=== PATIENT | female | born 1980 | race Caucasian/White ===

== ENCOUNTER 2016-11-28 14:05 | Emergency (ER) | payer OTHER ==
[2016-11-28 14:45] VITALS: BP 150/59
--- NOTE | 2016-11-28 14:47 | UC ---
General HPI - History of Current Complaint Chief Complaint: UCBiteInjury Stated Complaint: RABIES EXPOSURE Hx Obtained From: Patient - live bat found hanging on window blind with blood on it yesterday. removed bat from house using a container, states it flew away. Patient sustained no bite Hx Last Menstrual Period: 11/27/2016 - Allergy/Home Medications Allergies/Adverse Reactions: Allergies Allergy/AdvReac Type Severity Reaction Status Date / Time Beta Adrenergic Blockers Allergy Unknown Unknown Verified 11/28/16 14:30 Reaction Details Home Medications: Home Medications Enalapril TAB* [Vasotec TAB*] 1 tab PO DAILY 11/28/16 [History Confirmed ] Gabapentin CAP(*) [Neurontin 100 mg CAP(*)] 1 tab PO TID 11/28/16 [History Confirmed 11/28/16] Insulin Aspart [Novolog] 5 unit SUBCUT TID PRN 11/28/16 [History Confirmed 11/28] Insulin Detemir (NF) [Levemir (NF)] 28 unit SUBCUT DAILY 11/28/16 [History Confirmed 11/28/16] Modafinil [Provigil] 1 tab PO DAILY PRN 11/28/16 [History Confirmed 11/28/16] Nabumetone TAB* [Relafen TAB*] 1.5 tab PO BID 11/28/16 [History Confirmed ] Promethazine HCl 1 tbsp PO DAILY PRN 11/28/16 [History Confirmed 11/28/16] Sertraline* [Zoloft*] 3 tab PO DAILY 11/28/16 [History Confirmed 11/28/16] traZODone TAB* [Desyrel TAB*] 1 tab PO DAILY 11/28/16 [History Confirmed ] PMH/Surg Hx/FS Hx/Imm Hx Previously Healthy: Yes Endocrine History: Diabetes Cardiovascular History: Hypertension Psychological History: Anxiety, Depression, Other - chronic fatigue Other Psychological History: anxiety - Surgical History Surgical History: None - Family History Known Family History: Positive: Hypertension - Social History Occupation: Unemployed Lives: With Family Alcohol Use: None Substance Use Type: None Smoking Status (MU): Former Smoker Type: eCigarettes - Immunization History Most Recent Tetanus Shot: UNSURE Vaccination Up to Date: No Review of Systems Constitutional: Negative Skin: Negative Respiratory: Negative Cardiovascular: Negative All Other Systems Reviewed And Are Negative: Yes Physical Exam Triage Information Reviewed: Yes Appearance: Well-Appearing, No Pain Distress, Obese Vital Signs: Initial Vital Signs Temp 97.4 F 11/28/16 14:38 Pulse 85 11/28/16 14:38 Resp 16 11/28/16 14:38 BP 150/59 11/28/16 14:38 Pulse Ox 99 11/28/16 14:38 Vital Signs Reviewed: Yes Respiratory Exam: Normal Cardiovascular Exam: Normal Psychological Exam: Normal Skin Exam: Normal - no bite/scratch min Course/Dx - Differential Dx - Multi-Symptom Differential Diagnoses: Other - bat exposure poss exposure rabies Provider Diagnoses: possible exposure to rabies Discharge - Discharge Plan Condition: Good Disposition: HOME Patient Education Materials: Rabies Vaccine (By injection), Rabies Immune Globulin (By injection), Diphtheria/Acellular Pertussis/Tetanus Vaccine (By injection) Referrals: Sona Cardoso MD [Primary Care Provider] - 2 Days (recheck B/P) Additional Instructions: follow-up with health department as directed
[2016-11-28] MEDS ORDERED: Tetan/Diph/Pertus SYR(Tdap)* 0.5 ML SYR(BOOSTRIX) use SYR IM ONE (14:57)
[2016-11-28] MEDS ORDERED: Rabies Vaccine, PCEC INJ* 1 ml IM ONE (15:17)
[2016-11-28] MEDS ORDERED: Rabies Immune Globulin 10 ML* 150 UNIT/ML VIAL IM ONE (15:17)
[2016-11-28] MEDS ORDERED: Rabies Immune Globulin 2 ML* 150 UNITS/ML VIAL IM ONE (15:17)
== END 2016-11-28 16:14 | disposition home or self-care (01) ==
LOC: UCEAST 14:05
DX: Z20.3 Contact with and (suspected) exposure to rabies (principal); E11.9 Type 2 diabetes mellitus without complications; I10 Essential (primary) hypertension; F41.9 Anxiety disorder, unspecified; F32.9 Major depressive disorder, single episode, unspecified; Z79.4 Long term (current) use of insulin
CPT/HCPCS: 90375; 90471; 90472; 90675; 90715; 96372; 99211; G0463

== ENCOUNTER 2017-01-16 16:18 | Emergency (ER) | payer OTHER ==
[2017-01-16 17:17] VITALS: BP 121/75
--- NOTE | 2017-01-16 18:45 | UC ---
Shoulder Pain HPI - History of Current Complaint Chief Complaint: UCUpperExtremity Stated Complaint: RIGHT UNDER ARM PAIN Time Seen by Provider: 01/16/17 18:13 Hx Obtained From: Patient Hx Last Menstrual Period: 12/26/16 ?: No - Implanon Onset/Duration: Gradual Onset - started 6-7 days ago with R shoulder pain, pain in R armpit, no known injury. has not gotten better despite ibuprofen, tylenol or heat. 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 this frequently - Risk Factors DVT Risk Factors: Negative - Allergies/Home Medications Allergies/Adverse Reactions: Allergies Allergy/AdvReac Type Severity Reaction Status Date / Time Beta Adrenergic Blockers Allergy Unknown Unknown Verified 11/28/16 14:30 Reaction Details Home Medications: Home Medications Pregabalin CAP(*) [Lyrica CAP(*)] 50 mg PO TID 01/16/17 [History Confirmed 01/16] buPROPion TAB* [Wellbutrin TAB*] 100 mg PO BID 01/16/17 [History Confirmed 01/16] PMH/Surg Hx/FS Hx/Imm Hx Previously Healthy: Yes Endocrine History: Diabetes Neurological History: Other - fibromyalgia Other Neurological History: fibromyalgia Psychological History: Depression - Surgical History Surgical History: None - Family History Known Family History: Positive: Hypertension - Social History Occupation: Unemployed Lives: With Family Alcohol Use: Rare Substance Use Type: None Smoking Status (MU): Former Smoker Type: eCigarettes - Immunization History Most Recent Tetanus Shot: UNSURE Vaccination Up to Date: No Review of Systems Constitutional: Negative Respiratory: Negative Cardiovascular: Negative Musculoskeletal: Other: - shoulder pain Neurological: Paresthesia - R fingers All Other Systems Reviewed And Are Negative: Yes Physical Exam Triage Information Reviewed: Yes Appearance: Well-Appearing, No Pain Distress, Well-Nourished Vital Signs: Initial Vital Signs Temp 98.7 F 01/16/17 17:07 Pulse 82 01/16/17 17:07 Resp 18 01/16/17 17:07 BP 121/75 01/16/17 17:07 Pulse Ox 98 01/16/17 17:07 Vital Signs Reviewed: Yes Neck exam: Normal Neck: Positive: Supple, Nontender, No Lymphadenopathy Respiratory Exam: Normal Respiratory: Positive: Lungs clear Cardiovascular Exam: Normal Cardiovascular: Positive: RRR, No Murmur, Pulses Normal, Brisk Capillary Refill Musculoskeletal: Positive: Strength Intact, ROM Intact, No Edema, Other: - no palpable pain. patient demonstrates full active ROM bilateral UE and normal strength Neurological Exam: Normal Psychological Exam: Normal Skin Exam: Normal Skin: Negative: rashes Shoulder Course/Dx - Differential Dx/Diagnosis Differential Diagnosis/HQI/PQRI: Bursitis, Contusion, Sprain, Strain, Tendonitis , Thoracic Outlet Syndrome, Other - LAD, abscess axilla Provider Diagnoses: R shoulder strain Discharge - Discharge Plan Condition: Stable Disposition: HOME Patient Education Materials: Shoulder Pain (ED) Referrals: Sona Cardoso MD [Primary Care Provider] - 2 Days (for recheck) Additional Instructions: use shoulder immobilizer and rest arm report to Er if your symptoms change or worsen at anytime apply warm pad to shoulder and upper back
== END 2017-01-16 19:00 | disposition home or self-care (01) ==
LOC: UCEAST 16:18
DX: S46.911A Strain of unspecified muscle, fascia and tendon at shoulder and upper arm level, right arm, initial encounter (principal); X58.XXXA Exposure to other specified factors, initial encounter; Y93.9 Activity, unspecified; Y92.9 Unspecified place or not applicable; R20.0 Anesthesia of skin; R20.2 Paresthesia of skin; E11.9 Type 2 diabetes mellitus without complications; M79.7 Fibromyalgia; F32.9 Major depressive disorder, single episode, unspecified; Z87.891 Personal history of nicotine dependence
CPT/HCPCS: 99213; G0463

== ENCOUNTER 2017-07-06 21:02 | Emergency (ER) | payer OTHER ==
[2017-07-06] MEDS ORDERED: NS 0.9% 1000 ML* 1,000 ML IV ONE (21:29)
[2017-07-06 21:54] LABS: ABS Basophils 0.1 10^3/ul (0-0.2); ABS Eosinophils 0.2 10^3/ul (0-0.6); ABS Lymphocytes 3.1 10^3/ul (1.0-4.8); ABS Monocytes 0.4 10^3/ul (0-0.8); ABS Neutrophils 4.5 10^3/ul (1.5-7.7); ABS Nucleated RBC 0 10^3/ul; Eosinophil % 1.9 % (0-6); Hematocrit 36 % (35-47); Hemoglobin 12.2 g/dl (12.0-16.0); Lymphocyte % 37.6 % (25-47); Mean Corpuscular HGB Conc 34 g/dl (31-36); Mean Corpuscular Hemoglobin 31 pg (27-31); Mean Corpuscular Volume 93 fL (80-97); Mean Platelet Volume 8 um3 (7.4-10.4); Nucleated Red Blood Cells % 0; Platelet Count 271 10^3/ul (150-450); Red Blood Count 3.93 10^6/ul (4.0-5.4); Red Cell Distribution Width 13 % (10.5-15); White Blood Count 8.2 10^3/ul (3.5-10.8)
[2017-07-06 22:10] LABS: EGFR Non-African American 125.1 (>60)
[2017-07-06] MEDS ORDERED: Insulin REGULAR(*) 1 UNITS UNIT IV PUSH ONE (22:16)
--- NOTE | 2017-07-06 23:09 | ED ---
Ari Cabrera Rebecca, scribed for Lynette Lombardo MD on 07/06/17 at 2129 . HPI Diabetic - HPI Summary HPI Summary: Pt is a 37 y/o F with a PMHx of Type 1 DM who presents to ED c/o elevated BG. Pt reports that at about 1800 tonight she had trace ketones in her urine on a home test, then she retested, showing moderate ketones. Her BG was 246 at home using her meter at home. Additionally c/o nausea and JOYA. Denies vomiting. Pt takes Novolog and Levemir to treat diabetes, using a sliding scale with her last dose being 5 with dinner at about 1730. Confirms she has been drinking water and urinating and states that her BG is usually between 150 and 200. Reports that at a diabetes appointment about 1 month ago her A1C and BUN were high, but she has been unable to followup due to insurance problems. Has a PCP appointment scheduled for 2 days from now (). - History Of Current Complaint Chief Complaint: EDDiabeticProb Time Seen by Provider: 07/06/17 21:16 Hx Obtained From: Patient Hx Last Menstrual Period: 12/26/16 Onset/Duration: Still Present Character: Alert Aggravating: Nothing Alleviating: Nothing Associated Signs & Symptoms: Nausea Related History: DM I - Allergies/Home Medications Allergies/Adverse Reactions: Allergies Allergy/AdvReac Type Severity Reaction Status Date / Time Beta-Blockers Allergy Unknown Verified 07/06/17 21:08 (Beta-Adrenergic Bloc Reaction Details PMH/Surg Hx/FS Hx/Imm Hx Endocrine/Hematology History: Reports: Hx Diabetes - type 1 Denies: Hx Thyroid Disease Cardiovascular History: Denies: Hx Hypertension, Hx Pacemaker/ICD Respiratory History: Denies: Hx Asthma, Hx Chronic Obstructive Pulmonary Disease (COPD) GI History: Denies: Hx Ulcer History: Denies: Hx Renal Disease Sensory History: Denies: Hx Hearing Aid Psychiatric History: Reports: Hx Panic Disorder - ANIXIETY MRI OK - Surgical History Surgery Procedure, Year, and Place: 3 C SECTIONS. 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 Negative: Vomiting Positive: Headache All Other Systems Reviewed And Are Negative: Yes Physical Exam - Summary Physical Exam Summary: VITAL SIGNS: Reviewed. GENERAL: ~Patient is a well-developed and nourished female who is lying comfortable in the stretcher. Patient is not in any acute respiratory distress. HEAD AND FACE: No signs of trauma. No ecchymosis, hematomas or skull depressions. No sinus tenderness. EYES: PERRLA, EOMI x 2, No injected conjunctiva, no nystagmus. EARS: Hearing grossly intact. Ear canals and tympanic membranes are within normal limits. MOUTH: Oropharynx within normal limits. NECK: Supple, trachea is midline, no adenopathy, no JVD, no carotid bruit, no c- spine tenderness, neck with full ROM. CHEST: Symmetric, no tenderness at palpation LUNGS: Clear to auscultation bilaterally. No wheezing or crackles. CVS: Regular rate and rhythm, S1 and S2 present, no murmurs or gallops appreciated. ABDOMEN: Soft, non-tender. No signs of distention. No rebound no guarding, and no masses palpated. Bowel sounds are normal. EXTREMITIES: FROM in all major joints, no edema, no cyanosis or clubbing. NEURO: Alert and oriented x 3. No acute neurological deficits. Speech is normal and follows commands. SKIN: Dry and warm Triage Information Reviewed: Yes Vital Signs On Initial Exam: Initial Vitals Temp Pulse Resp BP Pulse Ox 97.0 F 65 16 126/55 99 07/06/17 21:06 07/06/17 21:06 07/06/17 21:06 07/06/17 21:06 07/06/17 21:06 Vital Signs Reviewed: Yes Diagnostics - Vital Signs Vital Signs Temp Pulse Resp BP Pulse Ox 07/06/17 21:19 76 98 07/06/17 21:06 97.0 F 65 16 126/55 99 - Laboratory Result Diagrams: 07/06/17 21:43 07/06/17 21:43 Lab Statement: Any lab studies that have been ordered have been reviewed, and results considered in the medical decision making process. Re-Evaluation - Re-Evaluation First Eval Re-Evaluation Time: 23:00 Change: Improved Comment: Pt's BG has been slowly coming down. Discussed D/C plan. Diabetic Course/Dx - Course Assessment/Plan: Pt is a 37 y/o F with a PMHx of Type 1 DM who presents to ED c/ o elevated BG. Pt reports that at about 1800 tonight she had trace ketones in her urine on a home test, then she retested, showing moderate ketones. Her BG was 246 at home using her meter at home. Additionally c/o nausea and JOYA. Denies vomiting. Pt takes Novolog and Levemir to treat diabetes, using a sliding scale with her last dose being 5 with dinner at about 1730. Confirms she has been drinking water and urinating and states that her BG is usually between 150 and 200. Reports that at a diabetes appointment about 1 month ago her A1C and BUN were high, but she has been unable to followup. In the ED course, pt received fluids and insulin which impproved symptoms. Pt will be D/C to home with Dx of hyperglycemia with a followup with her PCP. She understands and agrees. Allergies noted. - Diagnoses Provider Diagnoses: Hyperglycemia Discharge - Discharge Plan Condition: Stable Disposition: HOME Patient Education Materials: Diabetic Hyperglycemia (ED) Referrals: Sona Cardoso MD [Primary Care Provider] - 3 Days Additional Instructions: Continue taking medications as you have been. RETURN TO EMERGENCY DEPARTMENT FOR ANY NEW OR WORSENING SYMPTOMS The documentation as recorded by the Ari reyes Rebecca accurately reflects the service I personally performed and the decisions made by me, Lynette Lombardo MD.
[2017-07-06 23:21] VITALS: BP 119/67
== END 2017-07-06 23:22 | disposition home or self-care (01) ==
LOC: ED 21:02
DX: E10.65 Type 1 diabetes mellitus with hyperglycemia (principal); Z79.4 Long term (current) use of insulin; R11.0 Nausea; R51 Headache; F41.0 Panic disorder [episodic paroxysmal anxiety]; Z87.891 Personal history of nicotine dependence
CPT/HCPCS: 36415; 80053; 82803; 85025; 96360; 99283

== ENCOUNTER 2017-11-28 11:29 | Emergency (ER) | payer OTHER ==
--- OUTSIDE RECORDS SUMMARY | 2017-11-28 11:36 | XMS REPORT ---
:1980 External Reference #:[id number] Author Organization [facility] Address [address] [place] [address] [place] [address] Phone [phone] Care Team Providers Name Role Phone Sona Cardoso MD Care Team Information Economist Research Assistant Unavailable Ashish Eubanks MD Primary Care Physician Unavailable Payers Type Date Identification Numbers Payment Provider Subscriber Commercial Policy Number: [id number] [employer] Paige Marsh PayID: [id number] [address] [place] [id number] Problems Date Description Provider Status Onset: 02/02/2017 Skin sensation disturbance Boris Arredondo M.D. Active Onset: 02/02/2017 Diabetes mellitus Boris Arredondo M.D. Active Onset: 02/02/2017 Chronic fatigue syndrome Boris Arredondo M.D. Active Onset: 02/02/2017 Neck pain Boris Arredondo M.D. Active Onset: 02/02/2017 Pain in thoracic spine Boris Arredondo M.D. Active Onset: 02/02/2017 Low back pain Boris Arredondo M.D. Active Onset: 09/03/2017 Fibromyalgia Boris Arredondo M.D. Active Onset: 10/15/2017 Concussion without loss of Boris Arredondo M.D. Active consciousness, subs encntr Onset: 10/15/2017 Inflammatory polyarthropathy Boris Arredondo M.D. Active Family History Date Family Member(s) Problem(s) Comments General Psoriasis Father Diabetes Mother Psoriasis Social History Type Date Description Comments ETOH Use Rarely consumes alcohol Smoking Patient is a former smoker quit 2015, smoked for 20 years 1 ppd at most Recreational Drug Use Denies Drug Use Smoking Patient is a current smoker, E Cig smokes every day Exercise Type/Frequency Exercises regularly Allergies, Adverse Reactions, Alerts Date Description Reaction Status Severity Comments 09/07/2017 Beta Adrenergic Blockers active bp too low 02/02/2017 NKDA inactive Medications Medication Date Status Form Strength Qnty SIG Indications Ordering Provider Naltrexone HCL 09/30/ Active Powder 15gm 4.5 mg 2017 compounded Antelmo Johnson in capsules by mouth every day Skelaxin 09/03/ Active Tablets 800mg 14tab Take one M79.7 Boris 2017 s pill twice Antelmo Arredondo a day as necessary Lyrica 09/03/ Active Capsules 200mg 60cap 1 pill by M79.7 Boris 2017 s mouth twice Antelmo Arredondo a day Enalapril / Active Tablets 10mg 1 by mouth Unknown Maleate 0000 once a day Adrafinil / Active Tablets 100mg 1 tab daily Unknown 0000 as needed Sertraline HCL / Active Tablets 100mg 1.5 by Unknown 0000 mouth every day Trazodone HCL / Active Tablets 100mg as Unknown 0000 directed- pt states she takes 50 MG every night Zofran / Active Tablets 4mg take 1 by Unknown 0000 mouth twice a day as needed for nausea Novolog Mix / Active Supn (70-30)10 5-25 units Unknown 70/30 0000 0Unit/ML as directed Prefilled Flexpen Basaglar / Active Solution 100Unit/M 28 units Unknown Kwikpen 0000 Pen-Injec L daily t Klonopin / Active Tablets 0.5mg half tab as Unknown 0000 needed.. Methotrexate / Active Tablets 2.5mg 4 tbs by Unknown 0000 mouth every week Lyrica 06/04/ Hx Capsules 150mg 60cap take 1 pill M79.7 Boris 2017 - s by mouth Antelmo Arredondo 09/03/ twice a day 2017 Lyrica 03/08/ Hx Capsules 100mg 60cap 1 by mouth R53.82 Morales Fabian 2016 - s twice a day Luz Elena 06/04/ Antelmo 2017 Buspirone HCL / Hx Tablets 10mg As directed Unknown 0000 - 2017 Lyrica / Hx Capsules 50mg 1 by mouth M54.5 Unknown 0000 - three times day 2016 Nabumetone / Hx Tablets 750mg As directed Unknown 0000 - 2016 Lantus / Hx Solution 100Unit/M 28 units Unknown 0000 - L subq 2017 Vital Signs Date Vital Result Comment 11/15/2017 Height 62 inches 5'2" Weight 165.00 lb Heart Rate 78 /min BP Systolic Sitting 118 mmHg BP Diastolic Sitting 65 mmHg Respiratory Rate 14 /min Pain Level 5 BMI (Body Mass Index) 30.2 kg/m2 10/15/2017 Height 62 inches 5'2" Weight 165.00 lb Heart Rate 84 /min BP Systolic Sitting 112 mmHg BP Diastolic Sitting 66 mmHg Respiratory Rate 16 /min BMI (Body Mass Index) 30.2 kg/m2 09/07/2017 Height 62 inches 5'2" Weight 167.00 lb Heart Rate 72 /min BP Systolic Sitting 128 mmHg BP Diastolic Sitting 80 mmHg Respiratory Rate 14 /min Pain Level 6 BMI (Body Mass Index) 30.5 kg/m2 09/03/2017 Height 62 inches 5'2" Weight 165.00 lb Heart Rate 80 /min BP Systolic Sitting 112 mmHg BP Diastolic Sitting 68 mmHg Respiratory Rate 16 /min BMI (Body Mass Index) 30.2 kg/m2 06/04/2017 Height 72 inches 6'0" Weight 170.00 lb Heart Rate 72 /min BP Systolic Sitting 128 mmHg BP Diastolic Sitting 78 mmHg Respiratory Rate 16 /min BMI (Body Mass Index) 23.1 kg/m2 03/08/2017 Height 62 inches 5'2" Weight 175.00 lb Heart Rate 84 /min BP Systolic 120 mmHg BP Diastolic 72 mmHg Respiratory Rate 12 /min BMI (Body Mass Index) 32.0 kg/m2 02/02/2017 Height 62 inches 5'2" Weight 171.00 lb Heart Rate 80 /min BP Systolic 112 mmHg BP Diastolic 78 mmHg Respiratory Rate 14 /min BMI (Body Mass Index) 31.3 kg/m2 Results Test Date Test Result H/L Range Note Laboratory test finding 09/07/2017 Miscellaneous Test Negative 1 Laboratory test finding 09/07/2017 Free Cortisol Serum 0.200 g/dL 2 Creatine Kinase(CK) 102 U/L 10-223 Angiotensin Converting Enzyme 10 U/L 8 - 53 3 TSH (Thyroid Stim Horm) 0.50 mcIU/mL 0.34-5.60 Free T4 (Free Thyroxine) 0.70 ng/dL 0.61-1.12 Celiac Panel 09/07/2017 Tissue Transglutaminase IgA Ab <1.2 U/mL 4 Immunoglobulin A 284 mg/dL 61 - 356 Celiac Interpretation See Comment 5 Laboratory test finding 09/07/2017 Rheumatoid Factor < 10 IU/mL <15 Connective Tissue Panel 09/07/2017 Anti-Nuclear Antibody 0.1 U 6 Cyclic Citrullinated Peptide <15.6 U 7 Interpretation See Comment 8 Protein Electrophoresis 09/07/2017 Total Protein(Pep) 7.0 g/dL 6.3 - 7.9 Albumin 3.6 g/dL 3.4-4.7 Alpha-1 Globulin 0.3 g/dL 0.1-0.3 Alpha-2 Globulin 1.1 g/dL 0.6-1.0 Beta Globulin 1.1 g/dL 0.7-1.2 Gamma Globulin 1.0 g/dL 0.6-1.6 Albumin/Globulin Ratio 1.08 Impression See Comment 9 Laboratory test finding 09/07/2017 Vitamin D, 1,25 Dihydroxy 62 pg/mL 18- 78 10 Vitamin B12 And Folate 09/07/2017 Vitamin B12 369 pg/mL 180-914 11 Serum Folic Acid (Folate) 10.42 ng/mL >3.99 Laboratory test finding 09/07/2017 Thyroperoxidase AB 0.59 IU/mL <9 Hla B27 09/07/2017 Hla B27 Negative 12 Hla B27 Interp See Comment 13 Celiac Hla 09/07/2017 Hla-Dqa1 SEE BELOW 14 Hla-DQB1 SEE BELOW 15 Celiac Gene Pairs Present? Yes Celiac Gene Interpretation See Comment 16 Laboratory test finding 09/07/2017 Erythrocyte Sed Rate 19 mm/Hr High 0- 14 C Reactive Protein 1.99 mg/L < 5.00 17 Anca AB Ser If 09/07/2017 C-Anca Negative Negative P-Anca Negative Negative 18 Laboratory test finding 09/07/2017 Liver-Kidney Microsome Igg Abs <5.0 U 19 Laboratory test finding 05/31/2017 Creatine Kinase(CK) 128 U/L 10-223 Aldolase 3.6 U/L <7.7 20 Myoglobin 14.6 ng/mL 14.3-65.8 Vitamin B12 And Folate Serum 05/31/2017 Vitamin B12 577 pg/mL 180-914 21 Folic Acid (Folate) 14.22 ng/mL >3.99 Laboratory test finding 05/31/2017 Erythrocyte Sed Rate 12 mm/Hr 0-14 C Reactive Protein 2.66 mg/L < 5.00 22 Nuclear AB (Sofia) By Ifa Igg <1:80 (Negative) 23 Rheumatoid Factor <15 IU/mL <15 24 TSH (Thyroid Stim Horm) 0.42 mcIU/mL 0.34-5.60 Free T4 (Free Thyroxine) 0.90 ng/dL 0.61-1.12 Basic Metabolic Panel 03/01/2017 Sodium 135 mmol/L 133-145 Chloride 100 mmol/L Low 101-111 Co2 Carbon Dioxide 31 mmol/L 22-32 Glucose 239 mg/dL High 70-100 Blood Urea Nitrogen 19 mg/dL 6-24 Creatinine 0.80 mg/dL 0.51-0.95 BUN/Creatinine Ratio 23.8 High 8-20 Calcium 9.5 mg/dL 8.6-10.3 Egfr Non- 81.2 >60 Egfr 104.4 >60 25 Potassium 5.1 mmol/L High 3.5-5.0 Anion Gap 4 mmol/L 2-11 1 See full report in scanned items Test Performed by: [facility] [address] [id number] Analytics Associate: Jimbo Santana II, M.D., Ph.D. 2 REFERENCE VALUE 6:00-10:30 AM Collection 0.121-1.065 mcg/dL ADDITIONAL INFORMATION This test was developed and its performance characteristics determined by [facility] in a manner consistent with CLIA requirements. This test has not been cleared or approved by the U.S. Food and Drug Administration. Test Performed by: [facility] [address] [place] [address] 3 Test Performed by: [facility] - [address] [address] 4 REFERENCE VALUE <4.0 (Negative) Test Performed by: [facility] - [address] [address] 5 Negative serology. Celiac disease unlikely. However, approximately 10% of patients with celiac disease are seronegative. Also, patients who are already adhering to a gluten-free diet may be seronegative. If celiac disease is highly clinically suspected, consider HLA-DQ typing. Test Performed by: [facility] - [address] [address] 6 REFERENCE VALUE <=1.0 (Negative) 7 REFERENCE VALUE <20.0 (Negative) 8 Tests for antibodies to dsDNA and VINNIE antigens are not performed automatically unless the SOFIA result is > or= 3.0 U. Studies performed at [facility] indicate that positive SOFIA results <3.0 U are rarely accompanied by positive second order tests. Test Performed by: [facility] - [address] [address] 9 RESULT: No apparent monoclonal protein on serum electrophoresis. Test Performed by: [facility] - [address] [address] 10 ADDITIONAL INFORMATION This test was developed and its performance characteristics determined by [facility] in a manner consistent with CLIA requirements. This test has not been cleared or approved by the U.S. Food and Drug Administration. Test Performed by: [facility] [address] [place] [address] 11 Normal Range 180 to 914 Indeterminate Range 145 to 180 Deficient Range <145 12 REFERENCE VALUE Not Applicable 13 RESULT: HLA-B27 antigen was not detected. ADDITIONAL INFORMATION Method: Flow Cytometry Performing Laboratory CLIA# [id number] Test Performed by: [facility] - [place] [id number] 14 RESULT: 03,04:01 REFERENCE VALUE Not Applicable 15 RESULT: 03:02,04:02 DQ Serologic Equivalent: 8,4 REFERENCE VALUE Not Applicable 16 These genes are permissive for celiac disease. The absence of HLA celiac permissive genes would make the presence of celiac disease unlikely. However, these genes can also be present in the normal population. ADDITIONAL INFORMATION Method: Molecular typing of HLA antigens performed using reverse SSOP and/or SSP methods, reported as serological equivalents and low to medium resolution molecular values. Performing Laboratory CLIA# [id number] Test Performed by: [address] [address] 17 Acute inflammation: >10.00 18 Negative for cANCA and pANCA patterns by immunofluorescence. ADDITIONAL INFORMATION This test was developed and its performance characteristics determined by [facility] in a manner consistent with CLIA requirements. This test has not been cleared or approved by the U.S. Food and Drug Administration. Test Performed by: [facility] - [address] [address] 19 REFERENCE VALUE <=20.0 (Negative) Test Performed by: [facility] [address] [place] [address] 20 Test Performed by: [place] [address] 21 Normal Range 180 to 914 Indeterminate Range 145 to 180 Deficient Range <145 22 Acute inflammation: >10.00 23 <1:80 (Negative) REFERENCE VALUE <1:80 (Negative) Test Performed by: [place] [address] 24 Test Performed by: [place] [address] 25 Because ethnic data is not always readily available, this report includes an eGFR for both -Americans and non- Americans. The National Kidney Disease Education Program (NKDEP) does not endorse the use of the MDRD equation for patients that are not between the ages of 18 and 70, are , have extremes of body size, muscle mass, or nutritional status, or are non- or non-. According to the National Kidney Foundation, irrespective of diagnosis, the stage of the disease is based on the level of kidney function: Stage Description GFR(mL/min/1.73 m(2)) 1 Kidney damage with normal or decreased GFR 90 2 Kidney damage with mild decrease in GFR 60-89 3 Moderate decrease in GFR 30-59 4 Severe decrease in GFR 15-29 5 Kidney failure <15 (or dialysis) Procedures Description No Information Encounters Type Date Location Provider CPT E/M Dx Office Visit 11/15/2017 [facility] Armando Johnson M.D. 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 Antelmo R53.82 Office Visit 08/27/2017 9:00a [facility] [place] [address] L40.0 Office Visit 07/16/2017 11:00a [facility] [place] [address] L40.0 Office Visit 06/04/2017 1:15p [facility] Boris Arredondo, [address] R53.82 Services [facility] [place] Rodriges M54.6 M54.5 S06.0x0D Office Visit 03/08/2017 10:15a [facility] Boris Arredondo, [address] M54.5 Services Of [employer] Antelmo M54.6 R53.82 Office Visit 02/02/2017 8:30a [facility] Boris Arredondo, [address] R20.2 Services [facility] [place] Rodriges R20.0 E11.8 R53.82 M54.2 M54.6 M54.5 Plan of Care Future Appointment(s):04/12/2018 9:40 am - Armando Johnson M.D. at [facility]01/17/2018 10:00 am - Boris Arredondo M.D. at [facility]11/29/2017 10:00 am - Rusty Nicole MD at [facility] Vqilbndprhd35/23/2018 - Armando Johnson M.D.M79.7 FibromyalgiaFollow up:Follow up in 4 to 5 months or sooner if [id number] Other disturbances of skin [id number] Elevated erythrocyte sedimentation rate
[2017-11-28 14:35] VITALS: BP 121/74
[2017-11-28] MEDS ORDERED: HYDROcodone/ACETAMIN 5-325 MG* 1 TAB PO ONE (14:36)
--- NOTE | 2017-11-28 14:47 | RAD ---
Indication: Right rib injury. 3 views of the right ribs demonstrate no fracture. No pneumothorax is noted. IMPRESSION: No fracture of the right ribs is noted.
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
== END 2017-11-28 15:40 | disposition home or self-care (01) ==
LOC: UCEAST 11:29
DX: S29.9XXA Unspecified injury of thorax, initial encounter (principal); W50.0XXA Accidental hit or strike by another person, initial encounter; Y93.51 Activity, roller skating (inline) and skateboarding; Y92.39 Other specified sports and athletic area as the place of occurrence of the external cause; Z88.8 Allergy status to other drugs, medicaments and biological substances; Z87.891 Personal history of nicotine dependence
CPT/HCPCS: 99212; G0463

== ENCOUNTER 2018-06-21 08:45 | Emergency (ER) | payer OTHER ==
--- OUTSIDE RECORDS SUMMARY | 2018-06-21 08:53 | XMS REPORT | Continuity of Care Document ---
:1980 External Reference #:[id number] Author Name Casey Lawton M.D. Address [address] [place] [address] Care Team Providers Name Role Phone Ashish Eubanks M.D. Primary Care Physician Unavailable Payers Date Identification Numbers Payment Provider Subscriber Effective: 2016 Policy Number: [id number] [facility] Karl Marsh PayID: [id number] [address] [address] [place] [address] Advance Directives Description No Information Available Problems Date Description Provider Status Onset: 2017 Type 1 diabetes mellitus well controlled BURTON Crockett Active Family History Date Family Member(s) Observation Comments Father Diabetes Father due to Unknown Causes () Father Renal Disease Father Nephotic Esophagus Mother Parathyroid Mother Intestinal Goider Children 3 First Son Migraine Second Son A&W First Daughter A&W Siblings 3 First Brother due to Suicide () Second Brother A&W Third Brother A&W Paternal Grandfather due to IN () Paternal Grandmother due to IN () Maternal Grandfather due to IN () Maternal Grandmother A&W Social History Type Date Description Comments Sex Unknown Education Highest Level Completed, Master's Degree Marital Status Lives With Spouse Lives With Daughter Lives With Sons Diet Patient is on a diabetic diet Pets 1 cat 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 Cigarette Use Former Cigarette Smoker Quit: 2016 ETOH Use Rarely consumes alcohol Recreational Drug Use Does Not Use Drugs Tobacco Use Start: Unknown End: Patient is a former smoker Unknown Smoking Status Reviewed: 06/08/18 Patient is a former smoker Exercise Type/Frequency Exercises regularly Seat Belt/Car Seat Always uses seat belt Currently Active Patient is currently sexually active Contraceptive Methods Nexplanon STD's No STD History Allergies, Adverse Reactions, Alerts Date Description Reaction Status Severity Comments 11/19/2016 Beta Adrenergic Blockers Active Medications Medication Date Status Form Strength Qnty SIG Indications Ordering Provider Orilissa Active Tablets 150mg 90tabs 1 by mouth N80.9 Casey AJailyn 019 every day Antelmo Lawton Naproxen Sodium Active Tablets 550mg 30tabs 1 by mouth Casey AJailyn 018 twice a Gelber, day as M.D. needed for pain or vaginal bleeding Enalapril Active Unknown Maleate 000 Zoloft Active Unknown 000 Novolog Penfill Active Unknown 000 Lyrica Active Capsules 200mg bid Unknown 000 Zofran Active Unknown 000 Trazadone Active Unknown 000 Klonopin Active Unknown 000 Basaglar Active Unknown Kwikpen 000 Orilissa Hx Tablets 200mg 60tabs 1 po qd N80.9 Casey AJailyn 019 - Gelber, M.DJailyn 019 Gabapentin Hx Unknown 000 - 017 Promethazine Hx Unknown HCL 000 - 017 Levemir Hx Unknown Flextouch 000 - 018 Buspirone HCL Hx Unknown 000 - 018 Medications Administered in Office Medication Date Status Form Strength Qnty SIG Indications Ordering Provider PT SCRN Tbco Administered Injection Casey Ford Id as Non User 019 Antelmo Lawton PT SCRN Tbco Administered Injection Casey Ford Id as Non User 018 Antelmo Lawton Immunizations Description No Information Available Vital Signs Date Vital Result Comment 06/08/2018 9:10am BP Systolic 124 mmHg BP Diastolic 60 mmHg Height 62.75 inches 5'2.75" Weight 166.00 lb BMI (Body Mass Index) 29.6 kg/m2 Last Menstrual Period [id number] 3 Parity 3 05/10/2018 8:31am BP Systolic 116 mmHg BP Diastolic 72 mmHg Height 62.75 inches 5'2.75" Weight 168.00 lb BMI (Body Mass Index) 30.0 kg/m2 Last Menstrual Period [id number] 3 Parity 3 12/31/2017 3:05pm BP Systolic 124 mmHg BP Diastolic 68 mmHg Height 62.75 inches 5'2.75" Weight 166.00 lb BMI (Body Mass Index) 29.6 kg/m2 Last Menstrual Period [id number] 3 Parity 3 01/12/2017 9:37am BP Systolic 118 mmHg BP Diastolic 72 mmHg Height 62.75 inches 5'2.75" Weight 174.00 lb BMI (Body Mass Index) 31.1 kg/m2 Last Menstrual Period [id number] 3 Parity 3 11/19/2016 9:20am BP Systolic 110 mmHg BP Diastolic 70 mmHg Height 62.75 inches 5'2.75" Weight 178.00 lb BMI (Body Mass Index) 31.8 kg/m2 Last Menstrual Period [id number] 3 Parity 3 Results Test Date Facility Test Result H/L Range Note Laboratory test 05/10/2018 [facility] Cytology SEE RESULT [address] [place] [address] BELOW [phone] Laboratory test 11/19/2016 [facility] Human Negative N Negative 2, [address] [place] [address] Papilloma [phone] Virus Rna Cytology SEE RESULT BELOW 4 1 SEE RESULT BELOW Name: BERONICAKARL : [address]: aCsey Lawton MD Acct: [id number] Unit: [id number] AGE: 38 Location: [facility] Re05/10/18 SEX: F Status: REG REF SPEC: [id number] KRISTINA: 05/10/[address] [facility] [address]: Casey Lawton MD REQ: [id number] RECD: 05/10/18-120 STATUS: [facility]ANKLIN [facility]KH[facility] DR: Ashish Eubanks MD _ ORDERED: TP IMAGE ANALYS, HPV/Thin Prep Negative for Intraepithelial lesion or Malignancy Date Time Test Result Flag (u) Normal Range 05/10/18 09 @ HPV RNA Negative Negative @ @ The high-risk HPV types detected by the assay include: 16, @ 18, 31, 33, 35, 39, 45, 51, 52, 56, 58, 59, 66, and 68. A. Ectocervical/Endocervical Specimen Adequacy: Satisfactory of evaluation Transformation zone component identified Patient Information: HPV: High risk HPV RNA testing regardless of pap results. Actual Specimen Date: 05/10/18 Last Menstrual Date: 04/26/18 Date of Last Specimen: 11/19/16 Signed by and Reported on: ELIZABETH Mcdermott(ASCP) [id number] This Pap test was evaluated with the assistance of the [employer]folinks Test Imaging System. Due to cytologic findings at the blood bank laboratory technician microscope, comprehensive manual rescreening by a Equalizer Operator may be required. The Pap Smear is a screening test designed to aid in the detection of premalignant and malignant conditions of the uterine cervix. It is not a diagnostic procedure and should not be used as the sole means of detecting cervical cancer. Both false- positive and false- negative reports do occur. Depending on your risk status, a Pap smear should be obtained and evaluated every 1-3 years. END OF REPORT DEPARTMENT OF PATHOLOGY, [address] [place] [address] Donavon Casas M.D. Director [facility] # [id number] 2 [id number] The high-risk HPV types detected by the assay include: 16, 18, 31, 33, 35, 39, 45, 51, 52, 56, 58, 59, 66, and 68. 4 SEE RESULT BELOW Name: BERONICAKARLMYNOR FORBES : [address]: Cat Mariee Acct: [id number] Unit: [id number] AGE: 36 Location: [facility] Re11/19/16 SEX: F Status: REG REF SPEC: [id number] KRISTINA: 11/19/16-[address]: Cat Mariee REQ: [id number] RECD: 11/19/16-1201 STATUS: SOUT _ ORDERED: TP IMAGE ANAL, HPV/Thin Prep COMMENTS: [id number] FINAL DIAGNOSIS Negative for Intraepithelial lesion or Malignancy A. Ectocervical/Endocervical Specimen Adequacy: Satisfactory of evaluation Transformation zone component identified Patient Information: HPV: High risk HPV RNA testing regardless of pap results. Actual Specimen Date: 11/19/16 Last Menstrual Date: 10/29/16 Spec Date if unknown: unknown Date Time Test Result Flag (u) Normal Range 11/19/16 1015 HPV RNA Negative Negative The high-risk HPV types detected by the assay include: 16, 18, 31, 33, 35, 39, 45, 51, 52, 56, 58, 59, 66, and 68. Signed (signature on file) ELIZABETH Ralph (ASCP) 11/20 1413 This Pap test was evaluated with the assistance of the ThinPrep Test Imaging System. Due to cytologic findings at the blood bank laboratory technician microscope, comprehensive manual rescreening by a Equalizer Operator may be required. The Pap Smear is a screening test designed to aid in the detection of premalignant and malignant conditions of the uterine cervix. It is not a diagnostic procedure and should not be used as the sole means of detecting cervical cancer. Both false- positive and false- negative reports do occur. Depending on your risk status, a Pap smear should be obtained and evaluated every 1-3 years. END OF REPORT * ML=Testing performed at Main Lab DEPARTMENT OF PATHOLOGY, [address] [place] [address] Donavon Casas M.D. 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 at [facility]
[2018-06-21 09:03] VITALS: BP 116/56
--- NOTE | 2018-06-21 09:41 | UC ---
FLU HPI - HPI Summary HPI Summary: 38 yo female presents with headache, body aches, sinus congestion, sore throat, and fatigue for the last 3 days. Has felt feverish, but has not taken her temperature. Has been taking mucinex, tylenol, and ibuprofen with no relief. She denies cough, SOB, chest pain, abdominal pain, n/v. She is eating and drinking well. - History of Current Complaint Chief Complaint: UCGeneralIllness Stated Complaint: FLU LIKE SYMPTOMS Time Seen by Provider: 06/21/18 09:40 Hx Obtained From: Patient Hx Last Menstrual Period: now Onset/Duration: Sudden Onset Severity Currently: Mild Severity Initially: Mild Pain Intensity: 4 Pain Scale Used: 0-10 Numeric - Allergy/Home Medications Allergies/Adverse Reactions: Allergies Allergy/AdvReac Type Severity Reaction Status Date / Time Beta-Blockers Allergy Unknown Verified 07/06/17 21:08 (Beta-Adrenergic Bloc Reaction Details PMH/Surg Hx/FS Hx/Imm Hx Endocrine History: Diabetes Cardiovascular History: Hypertension Psychological History: Anxiety, Depression - Surgical History Surgical History: Yes Surgery Procedure, Year, and Place: 3 C SECTIONS. TONSILS - Family History Known Family History: Positive: Hypertension - Social History Lives: With Family Alcohol Use: Rare Substance Use Type: None Smoking Status (MU): Former Smoker Type: eCigarettes - Immunization History Most Recent Tetanus Shot: utd Vaccination Up to Date: No Review of Systems All Other Systems Reviewed And Are Negative: Yes Constitutional: Positive: Fever, Chills, Fatigue, Other - Body aches Skin: Positive: Negative Eyes: Positive: Negative ENT: Positive: Sinus Pain/Tenderness Respiratory: Positive: Negative Cardiovascular: Positive: Negative Gastrointestinal: Positive: Negative Neurovascular: Positive: Negative Musculoskeletal: Positive: Negative Neurological: Positive: Headache Psychological: Positive: Negative Physical Exam - Summary Physical Exam Summary: GENERAL: NAD. WDWN. No pain distress. SKIN: No rashes, sores, lesions, or open wounds. HEENT: Head: AT/NC Eyes: EOM intact. Conjunctiva clear without inflammation or discharge. Ears: Hearing grossly normal. TMs intact, no bulging, erythema, or edema. Nose: Nasal mucosa pink and moist. NTTP maxillary and frontal sinus. Throat: Posterior oropharynx without exudates, erythema, or tonsillar enlargement. Uvula midline. NECK: Supple. Nontender. No lymphadenopathy. CHEST: CTAB. No r/r/w. No accessory muscle use. Breathing comfortably and in no distress. CV: RRR. Without m/r/g. Pulses intact. Cap refill <2seconds NEURO: Alert. PSYCH: Age appropriate behavior. Triage Information Reviewed: Yes Vital Signs: Initial Vital Signs Temp 97.8 F 06/21/18 08:54 Pulse 76 06/21/18 08:54 Resp 18 06/21/18 08:54 BP 116/56 06/21/18 08:54 Pulse Ox 97 06/21/18 08:54 Laboratory Tests 06/21/18 09:48 Influenza A (Rapid) Positive A Vital Signs Reviewed: Yes Flu Course/Dx - Course Course Of Treatment: POC flu positive. She is requesting pain medication for her headache given the tylenol and ibuprofen have not helped. She has had tramadol in the past with good relief, therefore will rx for this today for a short supply. Advised to rest and drink plenty of fluids. Reference #: [id number] - Differential Dx/Diagnosis Provider Diagnosis: Influenza, Headache Discharge - Sign-Out/Discharge Documenting (check all that apply): Patient Departure All imaging exams completed and their final reports reviewed: No Studies - Discharge Plan Condition: Stable Disposition: HOME Prescriptions: Oseltamivir CAP* [Tamiflu CAP*] 75 mg PO BID #10 cap traMADol TAB* [Ultram*] 50 mg PO Q12H PRN #5 tab MDD 2 PRN Reason: Pain Patient Education Materials: Cluster Headache (ED), Influenza (DC) Referrals: Ashish Eubanks MD [Primary Care Provider] - Additional Instructions: If you develop a fever, shortness of breath, chest pain, new or worsening symptoms - please call your PCP or go to the ED. - Billing Disposition and Condition Condition: STABLE Disposition: Home
[2018-06-21 09:53] LABS: Influenza A Molecular POSITIVE (Negative)
== END 2018-06-21 10:15 | disposition home or self-care (01) ==
LOC: UCEAST 08:45
DX: J11.1 Influenza due to unidentified influenza virus with other respiratory manifestations (principal); R51 Headache; E11.9 Type 2 diabetes mellitus without complications; I10 Essential (primary) hypertension; Z87.891 Personal history of nicotine dependence; Z88.8 Allergy status to other drugs, medicaments and biological substances
CPT/HCPCS: 99212; G0463

== ENCOUNTER 2020-09-22 18:12 | Inpatient (IN) ==
[2020-09-22] MEDS ORDERED: Lactated Ringers 1000 ml BAG 1,000 ML IV ONE (18:59)
[2020-09-22 19:03] LABS: Urine Appearance Cloudy; Urine Bilirubin Negative (Negative); Urine Blood 2+ (Negative); Urine Color Straw; Urine Glucose 3+(>=500 mg/dL) (Negative); Urine Ketones 2+ (Negative); Urine Nitrite Negative (Negative); Urine Protein 3+(>=500 mg/dL) (Negative); Urine Specific Gravity 1.026 (1.002-1.030); Urine Urobilinogen Negative (Negative)
[2020-09-22 19:08] LABS: Urine Bacteria 1+ (Absent); Urine Red Blood Cell 2+(6-10/hpf) (Absent); Urine Squamous Epithelial Cell Present (Absent); Urine White Blood Cell Trace(0-5/hpf) (Absent)
[2020-09-22 19:47] LABS: Hematocrit 46 % (35-47); Hemoglobin 15.5 g/dL (12.0-16.0); Mean Corpuscular HGB Conc 34 g/dL (31-36); Mean Corpuscular Hemoglobin 31 pg (27-31); Mean Corpuscular Volume 92 fL (80-97); Mean Platelet Volume 8.7 fL (7.4-10.4); Platelet Count 405 10^3/uL (150-450); Red Blood Count 5.02 10^6 /uL (3.70-4.87); Red Cell Distribution Width 13 % (10-15); White Blood Count 18.4 10^3/uL (3.5-10.8)
[2020-09-22 19:50] LABS: ABS Lymphocytes 1.2 10^3/ul (1.0-4.8); ABS Monocytes 0.3 10^3/ul (0-0.8); Lymphocyte % 6.6 %
[2020-09-22 20:03] LABS: Albumin/Globulin Ratio 1.4 (1-3); Calcium 9.2 mg/dL (8.6-10.3); EGFR African American 86.6 (>60); EGFR Non-African American 71.5 (>60); Globulin 3.7 g/dL (2-4); Magnesium 2.4 mg/dL (1.9-2.7); Potassium 4.8 mmol/L (3.5-5.0); Total Bilirubin 0.5 mg/dL (0.2-1.0); Total Protein 8.7 g/dL (6.4-8.9)
[2020-09-22 20:05] LABS: Troponin I 0.01 ng/mL (<0.03)
[2020-09-22] MEDS ORDERED: Dextrose 50% Syringe 50 ml 25 GM/50 ML SYRINGE IV PUSH ONE (20:16)
[2020-09-22] MEDS: Insulin Infusion 100unit/100mL 100 UNIT/100 ML BAG IV SCH (21:36)
[2020-09-22] MEDS ORDERED: Ondansetron 4 mg VIAL 2 MG/ML 2 ml VIAL IV PRN (21:50)
[2020-09-22] MEDS ORDERED: Al Hydrox/Mg Hydrox/Simet LIQ 30 ML UDC ONE (21:53)
[2020-09-22] MEDS: Al Hydrox/Mg Hydrox/Simet LIQ 30 ML UDC PO PRN (21:55)
[2020-09-22] MEDS ORDERED: BREXPIPRAZOLE 3 MG PO SCH (22:00)
[2020-09-22] MEDS ORDERED: NS 0.9% 1000 ml BAG 1,000 ML IV SCH (22:30)
[2020-09-22] MEDS ORDERED: NS 0.9% 1000 ml BAG 2,000 ML IV ONE (22:30)
[2020-09-22 22:58] LABS: C Reactive Protein 37.24 mg/L (<8.01)
[2020-09-22] MEDS ORDERED: cefTRIAXone 1 gm/50 mL NS BAG 1 GM/50 ML BAG IVPB SCH (23:00)
[2020-09-23] MEDS ORDERED: D5NS 0.9% 1000 ml BAG 1,000 ML IV SCH ×2 (00:30→02:20)
[2020-09-23 00:47] LABS: Calcium 8.8 mg/dL (8.6-10.3); EGFR African American 107.4 (>60); EGFR Non-African American 88.8 (>60); Potassium 3.7 mmol/L (3.5-5.0)
[2020-09-23] MEDS: Al Hydrox/Mg Hydrox/Simet LIQ 30 ML UDC PO PRN ×2 (03:19→15:01)
[2020-09-23] MEDS: Insulin Infusion 100unit/100mL 100 UNIT/100 ML BAG IV SCH (03:53)
[2020-09-23 04:04] LABS: Calcium 7.4 mg/dL (8.6-10.3); EGFR African American 137.3 (>60); EGFR Non-African American 113.5 (>60); Potassium 3.6 mmol/L (3.5-5.0)
[2020-09-23] MEDS ORDERED: Insulin GLARGINE 100 un/ml 10 ml VIAL SUBCUT ONE (04:19)
[2020-09-23] MEDS ORDERED: Dextrose 50% Syringe 50 ml 25 GM/50 ML SYRINGE IV PUSH PRN ×2 (04:19→12:17)
[2020-09-23 04:54] LABS: ABS Basophils 0.1 10^3/ul (0-0.2); ABS Eosinophils 0.1 10^3/ul (0-0.6); ABS Lymphocytes 2.9 10^3/ul (1.0-4.8); ABS Monocytes 1.4 10^3/ul (0-0.8); ABS Neutrophils 10.8 10^3/ul (1.5-7.7); Eosinophil % 0.3 %; Hematocrit 40 % (35-47); Hemoglobin 13.4 g/dL (12.0-16.0); Lymphocyte % 19.2 %; Mean Corpuscular HGB Conc 34 g/dL (31-36); Mean Corpuscular Hemoglobin 31 pg (27-31); Mean Corpuscular Volume 91 fL (80-97); Mean Platelet Volume 7.9 fL (7.4-10.4); Platelet Count 380 10^3/uL (150-450); Red Blood Count 4.38 10^6 /uL (3.70-4.87); Red Cell Distribution Width 13 % (10-15); White Blood Count 15.3 10^3/uL (3.5-10.8)
[2020-09-23 05:11] LABS: Calcium 7.8 mg/dL (8.6-10.3); EGFR African American 127.3 (>60); EGFR Non-African American 105.2 (>60)
[2020-09-23] MEDS: BREXPIPRAZOLE 3 MG PO SCH (07:49)
[2020-09-23 08:35] LABS: Magnesium 2.2 mg/dL (1.9-2.7); Phosphorus 1.5 mg/dL (2.5-5.0)
[2020-09-23] MEDS ORDERED: Amphetamine MIXED SALT 10mgTAB PO SCH (09:00)
[2020-09-24 06:28] LABS: ABS Eosinophils 0.1 10^3/ul (0-0.6); ABS Lymphocytes 2.8 10^3/ul (1.0-4.8); ABS Monocytes 0.4 10^3/ul (0-0.8); ABS Neutrophils 5.1 10^3/ul (1.5-7.7); Eosinophil % 0.8 %; Hematocrit 39 % (35-47); Hemoglobin 13.4 g/dL (12.0-16.0); Lymphocyte % 33.5 %; Mean Corpuscular HGB Conc 34 g/dL (31-36); Mean Corpuscular Hemoglobin 31 pg (27-31); Mean Corpuscular Volume 91 fL (80-97); Mean Platelet Volume 8.4 fL (7.4-10.4); Platelet Count 308 10^3/uL (150-450); Red Cell Distribution Width 13 % (10-15); White Blood Count 8.5 10^3/uL (3.5-10.8)
[2020-09-24 06:43] LABS: Calcium 8.2 mg/dL (8.6-10.3); Potassium 4.2 mmol/L (3.5-5.0)
[2020-09-24 06:49] LABS: EGFR African American 148.9 (>60)
[2020-09-24] MEDS ORDERED: Insulin GLARGINE 100 un/ml 10 ml VIAL SUBCUT SCH (09:00)
[2020-09-24] MEDS: BREXPIPRAZOLE 3 MG PO SCH (09:06)
[2020-09-24 14:10] VITALS: BP 133/72
== END 2020-09-24 15:05 | disposition home or self-care (01) ==
LOC: ED 18:12 → ICU 22:52 → MED 09-23 12:00
PROVIDERS: ADMIT Internal Medicine; ATTEND Hospitalist

== ENCOUNTER 2021-05-16 08:53 | Inpatient (IN) ==
[2021-05-16] MEDS ORDERED: NS 0.9% 1000 ml BAG 1,000 ML IV ONE (09:03)
[2021-05-16 09:37] LABS: Venous Bicarbonate HCO3 14.3 mmol/L (24-28)
[2021-05-16 09:43] LABS: ABS Basophils 0.1 10^3/ul (0-0.2); ABS Eosinophils 0.1 10^3/ul (0-0.6); ABS Lymphocytes 2.1 10^3/ul (1.0-4.8); ABS Monocytes 0.3 10^3/ul (0-0.8); ABS Neutrophils 6.1 10^3/ul (1.5-7.7); Eosinophil % 1.5 %; Hematocrit 46 % (35-47); Hemoglobin 15.1 g/dL (12.0-16.0); Lymphocyte % 24.6 %; Mean Corpuscular HGB Conc 33 g/dL (31-36); Mean Corpuscular Hemoglobin 31 pg (27-31); Mean Corpuscular Volume 93 fL (80-97); Mean Platelet Volume 9.4 fL (7.4-10.4); Platelet Count 301 10^3/uL (150-450); Red Blood Count 4.92 10^6 /uL (3.70-4.87); Red Cell Distribution Width 13 % (10-15); White Blood Count 8.7 10^3/uL (3.5-10.8)
[2021-05-16 10:01] LABS: ALT 14 U/L (7-52); AST 10 U/L (13-39); Albumin 4.5 g/dL (3.2-5.2); Albumin/Globulin Ratio 1.3 (1-3); Alkaline Phosphatase 97 U/L (35-149); Anion Gap 16 mmol/L (2-11); Blood Urea Nitrogen 8 mg/dL (6-24); C Reactive Protein 8.72 mg/L (<8.01); CO2 Carbon Dioxide 16 mmol/L (22-32); Calcium 8.9 mg/dL (8.6-10.3); Chloride 94 mmol/L (101-111); Globulin 3.5 g/dL (2-4); Lipase 67 U/L (11.0-82.0); Potassium 4.9 mmol/L (3.5-5.0); Sodium 126 mmol/L (135-145); eGFR CKD-EPI 106.6 (>60)
[2021-05-16] MEDS ORDERED: Insulin Infusion 100unit/100mL 100 UNIT/100 ML BAG IV ONE (10:02)
[2021-05-16] MEDS ORDERED: INSULIN GLARGINE (NF) 300 UNIT/ML INJ SUBCUT ONE (10:03)
[2021-05-16 10:04] LABS: Glucose 531 mg/dL (70-100)
[2021-05-16 10:08] LABS: HCG Pregnancy < 0.60 mIU/mL
[2021-05-16 10:25] LABS: Urine Appearance Clear; Urine Color Straw; Urine Specific Gravity 1.015 (1.002-1.030); Urine pH 5 (5-9)
[2021-05-16 10:26] LABS: Urine Bilirubin Negative (Negative); Urine Blood Negative (Negative); Urine Glucose 3+(>=500 mg/dL) (Negative); Urine Ketones 3+ (Negative); Urine Nitrite Negative (Negative); Urine Protein Negative (Negative); Urine Urobilinogen Negative (Negative)
[2021-05-16] MEDS ORDERED: Insulin GLARGINE 100 un/ml 10 ml VIAL SUBCUT ONE (10:45)
[2021-05-16] MEDS ORDERED: Dextrose 50% Syringe 50 ml 25 GM/50 ML SYRINGE IV PUSH PRN ×2 (10:53→15:35)
[2021-05-16] MEDS ORDERED: NORMOSOL-R pH 7.4 1000 mL BAG 1,000 ML IV ONE (10:53)
[2021-05-16] MEDS ORDERED: NORMOSOL-R pH 7.4 1000 mL BAG 1,000 ML IV SCH (12:00)
[2021-05-16 13:56] LABS: Calcium 7.9 mg/dL (8.6-10.3); Potassium 3.8 mmol/L (3.5-5.0); eGFR CKD-EPI 120.9 (>60)
[2021-05-16] MEDS ORDERED: Insulin GLARGINE 100 un/ml 10 ml VIAL SUBCUT SCH (16:00)
[2021-05-16] MEDS ORDERED: Al Hydrox/Mg Hydrox/Simet LIQ 30 ML UDC PO PRN (19:56)
[2021-05-16] MEDS ORDERED: Calcium Carb (TUMS) 500 mg CHEW TAB PO PRN (19:56)
[2021-05-16] MEDS: Nicotine PATCH 14 MG/24 HR PATCH TRANSDERM SCH (20:18)
[2021-05-16 20:41] LABS: Calcium 8.3 mg/dL (8.6-10.3); Potassium 4.4 mmol/L (3.5-5.0); eGFR CKD-EPI 113.2 (>60)
[2021-05-17 06:42] LABS: Hematocrit 42 % (35-47); Hemoglobin 14.3 g/dL (12.0-16.0); Mean Corpuscular HGB Conc 34 g/dL (31-36); Mean Corpuscular Hemoglobin 31 pg (27-31); Mean Corpuscular Volume 90 fL (80-97); Platelet Count 247 10^3/uL (150-450); Red Blood Count 4.63 10^6 /uL (3.70-4.87); Red Cell Distribution Width 13 % (10-15); White Blood Count 8.5 10^3/uL (3.5-10.8)
[2021-05-17 06:51] LABS: CO2 Carbon Dioxide 23 mmol/L (22-32); Calcium 8.5 mg/dL (8.6-10.3); Chloride 106 mmol/L (101-111); Magnesium 2.2 mg/dL (1.9-2.7); Sodium 137 mmol/L (135-145)
[2021-05-17 06:56] LABS: Blood Urea Nitrogen 9 mg/dL (6-24); Glucose 260 mg/dL (70-100); eGFR CKD-EPI 114.1 (>60)
[2021-05-17 08:07] LABS: Anion Gap 8 mmol/L (2-11)
[2021-05-17] MEDS: Nicotine PATCH 14 MG/24 HR PATCH TRANSDERM SCH (08:31)
[2021-05-17] MEDS ORDERED: Insulin LISPRO* FOR INSULIN PUMP SUBCUT SCH ×2 (13:00→13:55)
[2021-05-17] MEDS ORDERED: Insulin GLARGINE 100 un/ml 10 ml VIAL SUBCUT SCH (21:00)
[2021-05-17] MEDS ORDERED: Enoxaparin 40 MG/0.4 ML SYR SUBCUT SCH (21:00)
[2021-05-18 08:02] VITALS: BP 131/67
[2021-05-18] MEDS ORDERED: Pneumococcal Vac 23-Polyvalent IM ONE (09:00)
[2021-05-18] MEDS: Nicotine PATCH 14 MG/24 HR PATCH TRANSDERM SCH (09:15)
== END 2021-05-18 12:40 | disposition home or self-care (01) | DRG 420 ==
LOC: ED 08:53 → SUATTDRO 12:29 → EDHOLD 12:29 → MED 20:01
PROVIDERS: ADMIT Internal Medicine Critical Care Medicine; ATTEND Internal Medicine